=== PATIENT | male | born 1985 | race Two or more races ===

== ENCOUNTER → 2016-03-24 | Outpatient (CLI) | payer MEDICAID ==
[2016-03-24 17:57] LABS: AMPHETAMINES/METAMPHETAMINES NEGATIVE ng/mL (<1000)
[2016-04-07 14:37] LABS: Opiates Negative ng/mL (Cutoff=100)
== END ==
LOC: LAB 16:31
PROVIDERS: Nurse Practitioner Family
DX: Z79.899 Other long term (current) drug therapy (principal)